=== PATIENT | male | born 1955 | race Caucasian/White ===

== ENCOUNTER → 2018-12-04 | Outpatient (CLI) | payer OTHER ==
[~2018-12-04] MED LIST: ATOR10 PO
== END | disposition home or self-care (01) ==
LOC: RAH 07:31
PROVIDERS: ATTEND Internal Medicine Cardiovascular Disease
DX: Z13.6 Encounter for screening for cardiovascular disorders (principal)
CPT/HCPCS: 75571

== ENCOUNTER → 2022-03-11 | Outpatient (CLI) | payer OTHER ==
[2022-03-11 12:28] LABS: BASOPHILS % (AUTO) 0.7 % (0.0-5.0); EOSINOPHILS % (AUTO) 2.3 % (0.0-8.0); HEMATOCRIT 45.2 % (42-54); LYMPHOCYTES % (AUTO) 25.6 % (21.0-51.0); MEAN CORPUSCULAR HEMOGLOBIN 31.8 pg (27.0-33.0); MEAN CORPUSCULAR VOLUME 96.6 fL (79-99); MONOCYTES % (AUTO) 8.5 % (3.0-13.0); NEUTROPHILS % (AUTO) 62.6 % (40.0-77.0); PLATELET COUNT (AUTO) 227 K/uL (130-400); RED BLOOD CELL COUNT(AUTO) 4.68 MIL/uL (4.50-6.20); RED CELL DISTRIBUTION WIDTH 13.7 % (11.0-15.5); WHITE BLOOD COUNT (AUTO) 6.8 K/uL (4.8-10.8)
[2022-03-11 12:33] LABS: HEMOGLOBIN A1C 6.2 % (4.0-6.0)
[2022-03-11 13:10] LABS: ALBUMIN 3.7 g/dL (3.5-5.0); CREATININE 1.2 mg/dL (0.5-1.5); POTASSIUM 4.7 mmol/L (3.5-5.1); T4 (THYROXINE) 6.8 ug/dL (4.7-13.3); THYROID STIMULATING HORMONE 1.39 uIU/mL (0.36-3.74); TOTAL PROTEIN, SERUM 7.3 g/dL (6.0-8.3)
[2022-03-11 13:21] LABS: B-TYPE NATRIURETIC PEPTIDE 19 pg/mL (0-100)
== END | disposition home or self-care (01) ==
LOC: LAB 09:12
PROVIDERS: ATTEND Physician Assistant
DX: I10 Essential (primary) hypertension (principal); E78.5 Hyperlipidemia, unspecified; N40.0 Benign prostatic hyperplasia without lower urinary tract symptoms; R39.11 Hesitancy of micturition; Z79.899 Other long term (current) drug therapy
CPT/HCPCS: 36415; 80053; 80061; 83036; 83880; 84153; 84436; 84443; 84479; 85025

== ENCOUNTER → 2022-04-02 | Outpatient (CLI) | payer OTHER | END | disposition home or self-care (01) | LOC: RAH 12:46 | PROVIDERS: ATTEND Internal Medicine Cardiovascular Disease | DX: Z13.6 Encounter for screening for cardiovascular disorders (principal); K44.9 Diaphragmatic hernia without obstruction or gangrene; I51.5 Myocardial degeneration | CPT/HCPCS: 75571 ==

== ENCOUNTER → 2022-10-04 | Outpatient (CLI) | payer MEDICARE ==
[2022-10-04 12:08] LABS: HEMATOCRIT 45.3 % (42-54); LYMPHOCYTES % (AUTO) 30.3 % (21.0-51.0); MEAN CORPUSCULAR HEMOGLOBIN 31.8 pg (27.0-33.0); MEAN CORPUSCULAR HGB CONC 32.5 g/dL (32.0-36.0); MEAN CORPUSCULAR VOLUME 98.1 fL (79-99); MONOCYTES % (AUTO) 8.2 % (3.0-13.0); NEUTROPHILS % (AUTO) 57.5 % (40.0-77.0); PLATELET COUNT (AUTO) 275 K/uL (130-400); RED BLOOD CELL COUNT(AUTO) 4.62 MIL/uL (4.50-6.20)
[2022-10-04 12:15] LABS: HEMOGLOBIN A1C 5.8 % (4.0-6.0)
[2022-10-04 12:50] LABS: CHOLESTEROL 206 mg/dL (<200); HDL CHOLESTEROL 51 mg/dL (29-71); LDL DIRECT 126 mg/dL (0-99); TRIGLYCERIDES 170 mg/dL (30-200)
== END | disposition home or self-care (01) ==
LOC: LAB 09:10
PROVIDERS: ATTEND Physician Assistant
DX: I10 Essential (primary) hypertension (principal); E78.5 Hyperlipidemia, unspecified; Z79.899 Other long term (current) drug therapy
CPT/HCPCS: 36415; 80061; 83036; 85025

== ENCOUNTER → 2022-12-23 | Outpatient (CLI) | payer MEDICARE | END | disposition home or self-care (01) | LOC: SHCH 07:47 | PROVIDERS: ATTEND Internal Medicine Cardiovascular Disease | DX: R09.89 Other specified symptoms and signs involving the circulatory and respiratory systems (principal) | CPT/HCPCS: 93880 ==

== ENCOUNTER → 2023-12-15 | Outpatient (CLI) | payer MEDICARE ==
[2023-12-15 12:11] LABS: BASOPHILS # (AUTO) 0.06 K/uL (0.00-0.20); EOSINOPHILS # (AUTO) 0.14 K/uL (0.00-0.70); EOSINOPHILS % (AUTO) 2.4 % (0.0-8.0); HEMATOCRIT 45.6 % (42-54); IMMATURE GRANULOCYTE ABSOLUTE 0.01 K/uL (0-1); LYMPHOCYTES # (AUTO) 1.7 K/uL (1.0-4.8); LYMPHOCYTES % (AUTO) 28.6 % (21.0-51.0); MEAN CORPUSCULAR HEMOGLOBIN 32.2 pg (27.0-33.0); MEAN CORPUSCULAR HGB CONC 32.9 g/dL (32.0-36.0); MEAN CORPUSCULAR VOLUME 97.9 fL (79-99); MONOCYTES # (AUTO) 0.4 K/uL (0.1-1.0); MONOCYTES % (AUTO) 7.4 % (3.0-13.0); NEUTROPHILS # (AUTO) 3.5 K/uL (1.8-7.7); NEUTROPHILS % (AUTO) 60.4 % (40.0-77.0); PLATELET COUNT (AUTO) 244 K/uL (130-400); RED BLOOD CELL COUNT(AUTO) 4.66 MIL/uL (4.50-6.20); WHITE BLOOD COUNT (AUTO) 5.8 K/uL (4.8-10.8)
[2023-12-15 12:20] LABS: HEMOGLOBIN A1C 5.7 % (4.0-6.0)
[2023-12-15 13:00] LABS: ALBUMIN 3.7 g/dL (3.5-5.0); BILIRUBIN,TOTAL 0.5 mg/dL (0.2-1.0); CREATININE 1.1 mg/dL (0.5-1.3); POTASSIUM 4.7 mmol/L (3.5-5.1); THYROID STIMULATING HORMONE 2.04 uIU/mL (0.36-3.74); TOTAL PROTEIN, SERUM 7.1 g/dL (6.0-8.3)
== END | disposition home or self-care (01) ==
LOC: LAB 09:31
PROVIDERS: ATTEND Internal Medicine Cardiovascular Disease
DX: I10 Essential (primary) hypertension (principal); Z79.899 Other long term (current) drug therapy
CPT/HCPCS: 36415; 80053; 83036; 84436; 84443; 84479; 85025

== ENCOUNTER → 2023-12-20 | Outpatient (CLI) | payer MEDICARE | END | disposition home or self-care (01) | LOC: SHCH 10:07 | PROVIDERS: ATTEND Internal Medicine Cardiovascular Disease | DX: I25.10 Atherosclerotic heart disease of native coronary artery without angina pectoris (principal) | CPT/HCPCS: 93925 ==

== ENCOUNTER → 2023-12-26 | Outpatient (CLI) | payer MEDICARE | END | disposition home or self-care (01) | LOC: RAH 13:23 | PROVIDERS: ATTEND Neurological Surgery | DX: S32.011D Stable burst fracture of first lumbar vertebra, subsequent encounter for fracture with routine healing (principal); M51.36 Other intervertebral disc degeneration, lumbar region; M48.07 Spinal stenosis, lumbosacral region; X58.XXXD Exposure to other specified factors, subsequent encounter | CPT/HCPCS: 72148 ==

== ENCOUNTER → 2024-03-24 | Outpatient (CLI) | payer MEDICARE ==
[2024-03-24 12:37] LABS: CHOLESTEROL 167 mg/dL (<200); HDL CHOLESTEROL 58 mg/dL (29-71); LDL DIRECT 94 mg/dL (0-99); TRIGLYCERIDES 86 mg/dL (30-200)
== END | disposition home or self-care (01) ==
LOC: LAB 09:08
PROVIDERS: ATTEND Internal Medicine Cardiovascular Disease
DX: E78.5 Hyperlipidemia, unspecified (principal)
CPT/HCPCS: 36415; 80061

== ENCOUNTER → 2024-08-13 | Outpatient (CLI) | payer OTHER ==
--- NOTE | 2024-08-13 13:16 | HMCIMG ---
CT HEART SAVER PROMOTIONAL HISTORY: Cardiac calcification scoring. FINDINGS: The cardiac calcification scoring is 562.4. LM = 1 5.3, LAD = 185.7, CX = 123.5, and RCA = 140.0. Limited examination of the heart was performed. The study is done for additional or incidental findings. IMPRESSION: Very trace anterior pericardial fluid. No additional findings.
== END | disposition home or self-care (01) ==
LOC: RAH 11:15
PROVIDERS: ATTEND Internal Medicine Cardiovascular Disease
DX: Z13.6 Encounter for screening for cardiovascular disorders (principal)
CPT/HCPCS: 75571